=== PATIENT | female | born 2000 | race Two or more races ===

== ENCOUNTER 2023-10-22 11:39 | Outpatient (CLI) | payer OTHER | END 2023-10-22 11:40 | disposition home or self-care (01) | LOC: PRENATAL 11:39 | PROVIDERS: ATTEND Obstetrics & Gynecology Maternal & Fetal Medicine | DX: O36.80X0 Pregnancy with inconclusive fetal viability, not applicable or unspecified (principal); Z36.82 Encounter for antenatal screening for nuchal translucency; Z3A.11 11 weeks gestation of pregnancy ==

== ENCOUNTER 2023-12-23 08:37 | Outpatient (CLI) | payer OTHER | END 2023-12-23 08:39 | disposition home or self-care (01) | LOC: PRENATAL 08:37 | PROVIDERS: ATTEND Obstetrics & Gynecology Maternal & Fetal Medicine | DX: O35.3XX0 Maternal care for (suspected) damage to fetus from viral disease in mother, not applicable or unspecified (principal); O44.00 Complete placenta previa NOS or without hemorrhage, unspecified trimester; Z14.8 Genetic carrier of other disease; Z3A.20 20 weeks gestation of pregnancy ==

== ENCOUNTER 2024-03-16 11:02 | Outpatient (CLI) | payer OTHER | END 2024-03-16 11:03 | disposition home or self-care (01) | LOC: PRENATAL 11:02 | PROVIDERS: ATTEND Obstetrics & Gynecology Maternal & Fetal Medicine | DX: O26.849 Uterine size-date discrepancy, unspecified trimester (principal); O36.8199 Decreased fetal movements, unspecified trimester, other fetus; Z3A.33 33 weeks gestation of pregnancy ==

== ENCOUNTER 2024-04-16 00:21 | Outpatient (CLI) | payer OTHER ==
[2024-04-15] VITALS: BP 119/71
[2024-04-16] VITALS: BP 119/71
[2024-04-16] MEDS ORDERED: PRENATAL TABLE1 EAC4 (00:25)
[2024-04-16 04:34] VITALS: BP 114/67
[2024-04-16 07:50] VITALS: BP 94/59
[2024-04-16 10:21] VITALS: BP 94/59
== END 2024-04-16 11:16 | disposition home or self-care (01) ==
LOC: OBS/DEL 00:21
PROVIDERS: ATTEND Student in an Organized Health Care Education/Training Program
DX: O26.893 Other specified pregnancy related conditions, third trimester (principal); Z3A.36 36 weeks gestation of pregnancy

== ENCOUNTER 2024-04-30 15:00 | Inpatient (IN) | payer OTHER ==
[~2024-04-30] VITALS: Ht 165.1 cm; Wt 82.6 kg
[~2024-04-30 15:00] MED LIST: PRENATAL TABLE1 EAC4
[2024-05-04 08:30] VITALS: BP 112/78
[2024-05-04 09:02] VITALS: BP 112/78
[2024-05-04 09:57] LABS: HEMATOCRIT 38.8 % (36.0-45.00); HEMOGLOBIN 13.1 g/dL (12.0-15.00); MEAN CELL VOLUME 98.2 fL (80.00-100.00); MEAN CORPUSCULAR HEMOGLOBIN 33.2 pg (27.00-32.0); MEAN CORPUSCULAR HGB CONC 33.8 g/dl (32.0-36.0); PLATELET COUNT 191 K/uL (150-450); RED BLOOD COUNT 3.95 M/uL (4.00-6.00)
[2024-05-04 10:35] LABS: PH,URINE 5.5 (5.0-8.0); URINE APPEARANCE Clear; URINE BILIRRUBIN Negative (NEGATIVE); URINE BLOOD Negative; URINE COLOR Yellow; URINE GLUCOSE Negative (NEGATIVE); URINE KETONE Negative (NEGATIVE); URINE LEUKOCYTE Small; URINE NITRATE Negative; URINE PROTEIN Negative (NEGATIVE); URINE UROBILINOGEN 0.2 E.U./dl
[2024-05-04 10:37] LABS: BILIRUBIN TOTAL 0.24 mg/dL (0.3-1.2); CALCIUM 9.3 mg/dL (8.5-10.1); CREATININE SERUM 0.54 mg/dL (0.55-1.02); GFR 136.47; GLOBULINA 3.4 G/DL (2.4-3.5); POTASSIUM 4.17 mEq/L (3.5-5.1); TOTAL PROTEIN 6.4 gm/dL (6.4-8.2)
[2024-05-04 10:37] LABS: URINE BACTERIA 1220.1 uL (0.0-1933); URINE EPITHELIAL CELLS 45.9 uL (0.0-38.8); URINE RBC 2.7 uL (0.0-20.8); URINE WBC 148.3 uL (0.0-23.2)
[2024-05-04 10:41] LABS: URINE CAST 0.73 uL (0.0-1.40)
[2024-05-04 10:48] LABS: INR < 0.93; PARTIAL THROMBOPLASTIN TIME 29.6 SECONDS (22.0-34.0); PROTHROMBIN TIME 10.2 SECONDS (9.0-11.5)
[2024-05-04] MEDS ORDERED: MISOPROSTOL 25 MCG/4 ML GEL.W.APPL ONE (11:21)
[2024-05-04 11:32] VITALS: BP 118/59
[2024-05-04 15:39] VITALS: BP 129/63
[2024-05-04] MEDS ORDERED: OXYTOCIN 500 ML IV ONE (16:00)
[2024-05-04 19:18] VITALS: BP 133/88
[2024-05-04 23:12] VITALS: BP 133/62
[2024-05-05] VITALS (8 sets, daily range): BP systolic 125–150; BP diastolic 60–84
[2024-05-05] MEDS ORDERED: CHLORHEXIDINE GLUCONATE 120 ML BOTTLE TOP ONE (01:36)
[2024-05-05] MEDS ORDERED: ERYTHROMYCIN BASE OPHT 1GM EACH TUBE OP ONE ×2 (01:36→04:00)
[2024-05-05] MEDS ORDERED: LIDOCAINE HCL 1% 10ML VIAL ONE (01:36)
[2024-05-05] MEDS ORDERED: OXYTOCIN 10 UNITS/ML VIAL ONE (01:37)
[2024-05-05] MEDS ORDERED: ACETAMINOPHEN 500 MG GEL..CAP PO PRN (03:15)
[2024-05-05] MEDS ORDERED: OXYTOCIN 1,000 ML IV SCH (03:30)
[2024-05-05] MEDS ORDERED: CHLORHEXIDINE GLUCONATE 120 ML BOTTLE TP SCH (03:30)
[2024-05-05] MEDS ORDERED: LIDOCAINE HCL 1% 10ML VIAL IJ ONE (04:00)
[2024-05-05] MEDS ORDERED: PNV,CALCIUM 72/IRON/FOLIC ACID 1 TAB TABLET PO SCH (09:00)
[2024-05-05 11:34] LABS: HEMATOCRIT 32.9 % (36.0-45.00); HEMOGLOBIN 11.5 g/dL (12.0-15.00); MEAN CORPUSCULAR HEMOGLOBIN 33.9 pg (27.00-32.0); MEAN CORPUSCULAR HGB CONC 34.9 g/dl (32.0-36.0); RED BLOOD COUNT 3.39 M/uL (4.00-6.00); RED CELL DISTRIBUTION WIDTH 13.2 % (11.5-14.5)
[2024-05-05 11:36] LABS: PLATELET COUNT 186 K/uL (150-450)
[2024-05-06 01:18] VITALS: BP 113/72
[2024-05-06 08:43] VITALS: BP 123/74
[2024-05-06 15:48] VITALS: BP 123/73
[2024-05-06 23:35] VITALS: BP 115/74
[2024-05-07 08:00] VITALS: BP 126/79
== END 2024-05-07 13:28 | disposition home or self-care (01) | DRG 807 ==
LOC: OB/GYN 05-04 08:27 → LDR 05-04 08:27 → OB/GYN 05-04 15:00
PROVIDERS: ADMIT Obstetrics & Gynecology; ATTEND Obstetrics & Gynecology
PROC: 4A1HXCZ Monitoring of Products of Conception, Cardiac Rate, External Approach (ICD-10-PCS; 2024-05-04)
PROC: 10E0XZZ Delivery of Products of Conception, External Approach (ICD-10-PCS; principal; 2024-05-05)
PROC: 0UQMXZZ Repair Vulva, External Approach (ICD-10-PCS; 2024-05-05)
PROC: 3E033VJ Introduction of Other Hormone into Peripheral Vein, Percutaneous Approach (ICD-10-PCS; 2024-05-05)
DX: O70.0 First degree perineal laceration during delivery (principal); Z37.0 Single live birth; Z3A.39 39 weeks gestation of pregnancy